=== PATIENT | female | born 2005 | race Caucasian/White ===

== ENCOUNTER → 2025-05-24 | Outpatient (REF) | payer MEDICAID, OTHER | LOC: M PLALAB 08:35 | PROVIDERS: ATTEND Nurse Practitioner Family | DX: Z53.9 Procedure and treatment not carried out, unspecified reason (principal) ==

== ENCOUNTER → 2025-05-24 | Outpatient (CLI) | payer OTHER ==
[2025-05-24 13:28] LABS: PLATELET COUNT, AUTOMATED 306 10^3/uL (150-450)
[2025-05-24 14:00] LABS: HIV 1&2 SCREEN NEGATIVE (NEGATIVE)
[2025-05-24 14:07] LABS: HEPATITIS C VIRUS ABY INDEX < 0.02 INDEX (<0.8)
[2025-05-24 14:54] LABS: Trichomonas vaginalis (AMP) NOT DETECTED (NEGATIVE)
[2025-05-24 15:17] LABS: GC DNA AMPLIFICATION NEGATIVE (NEGATIVE)
== END ==
LOC: M PLALAB 09:21
PROVIDERS: ATTEND Nurse Practitioner Family
DX: Z34.80 Encounter for supervision of other normal pregnancy, unspecified trimester (principal)

== ENCOUNTER → 2025-07-11 | Outpatient (CLI) | payer OTHER | LOC: M WHC 13:01 | PROVIDERS: ATTEND Nurse Practitioner Family | DX: Z34.80 Encounter for supervision of other normal pregnancy, unspecified trimester (principal) ==

== ENCOUNTER → 2025-07-26 | Outpatient (CLI) | payer OTHER | LOC: M WHC 11:06 | PROVIDERS: ATTEND Nurse Practitioner Family | DX: Z34.80 Encounter for supervision of other normal pregnancy, unspecified trimester (principal) ==

== ENCOUNTER → 2025-08-26 | Outpatient (CLI) | payer OTHER ==
[2025-08-26 15:20] LABS: PLATELET COUNT, AUTOMATED 208 10^3/uL (150-450)
[2025-08-26 15:48] LABS: GLUCOSE CHALLENGE TEST 1 HOUR 97 MG/DL (LESS THAN 140)
[2025-08-26 16:23] LABS: HIV 1&2 SCREEN NEGATIVE (NEGATIVE)
[2025-08-26 16:28] LABS: Trichomonas vaginalis (AMP) NOT DETECTED (NEGATIVE)
[2025-08-26 16:31] LABS: HEPATITIS C VIRUS ABY INDEX 0.02 INDEX (<0.8)
[2025-08-26 16:51] LABS: GC DNA AMPLIFICATION NEGATIVE (NEGATIVE)
== END ==
LOC: M PLALAB 12:22
PROVIDERS: ATTEND Nurse Practitioner Family
DX: Z34.02 Encounter for supervision of normal first pregnancy, second trimester (principal); Z3A.00 Weeks of gestation of pregnancy not specified